=== PATIENT | male | born 1960 | race Hispanic/Latino ===

== ENCOUNTER 2018-04-19 07:25 | Emergency (ER) | payer OTHER ==
[2018-04-19 07:34] VITALS: RESP 19
[2018-04-19] MEDS ORDERED: Sodium Chloride 0.9% 1,000 ML IV STA (07:45)
[2018-04-19] MEDS ORDERED: Iohexol 240 (50 ml) PO ONE (07:45)
[2018-04-19 07:47] VITALS: O2SAT 98
[2018-04-19] MEDS ORDERED: Iohexol 240 (50 ml) ONE (07:55)
[2018-04-19 08:08] LABS: BASO % 0.3 % (0.0-2.0); EOS # 0.2 K/uL (0.0-0.7); EOS % 1.4 % (0.0-4.0); HEMOGLOBIN 15.5 g/dL (12.0-18.0); LYMPH # 1.4 K/uL (1.0-4.3); LYMPH % 11.6 % (20.0-40.0); MEAN CORPUSCULAR HEMOGLOBIN 32.7 pg (27.0-31.0); MEAN CORPUSCULAR HGB CONC 33.7 g/dL (33.0-37.0); MEAN PLATELET VOLUME 8.2 fl (7.2-11.7); MONO # 0.8 K/uL (0.0-0.8); MONO % 6.6 % (0.0-10.0); NEUT # 9.6 K/uL (1.8-7.0); NEUT % 80.1 % (50.0-75.0); RBC 4.75 Mil/uL (4.40-5.90); RED CELL DISTRIBUTION WIDTH 13.7 % (11.5-14.5); WHITE BLOOD COUNT 11.9 K/uL (4.8-10.8)
--- NOTE | 2018-04-19 08:08 | ED PDOC ---
HPI: Chest Pain Time Seen by Provider: 04/19/18 07:29 Chief Complaint (Nursing): Chest Pain Chief Complaint (Provider): chest pain History Per: Patient History/Exam Limitations: no limitations Additional Complaint(s): Maximo Reilly, a 58 year old male with no significant past medical history, presents to the emergency room with left sided chest pain associated with belly fullness onset yesterday. Patient states he feels like there is a bubble in his belly, and had similar symptoms last week which subsided after a family member gave him Bentyl. Patient denies taking Bentyl prior to arrival, shortness of breath, back pain, numbness, recent travel, dizziness, urinary problems, testicular pain, sick family members or PCP. No further medical complaints. Past Medical History Reviewed: Historical Data, Nursing Documentation, Vital Signs Vital Signs: Last Vital Signs Temp 97.4 F L 04/19/18 07:33 Pulse 65 04/19/18 07:33 Resp 19 04/19/18 07:33 BP 139/82 04/19/18 07:33 Pulse Ox 98 04/19/18 11:48 - Medical History PMH: No Chronic Diseases - Surgical History Surgical History: No Surg Hx - Family History Family History: States: Unknown Family Hx - Living Arrangements Living Arrangements: With Family - Home Medications Home Medications: Ambulatory Orders Medication Instructions Recorded Dicyclomine [Dicyclomine HCl] 10 mg PO DAILY PRN 5 Days cap 04/19/18 - Allergies Allergies/Adverse Reactions: Allergies Allergy/AdvReac Type Severity Reaction Status Date / Time SHELLFISH Allergy RASH Uncoded 04/19/18 08:56 VANESSA Risk Score for UA/NSTEMI - VANESSA Risk Score Age > 64: NO 3 or more CAD Risk Factors: NO Known CAD (Stenosis greater than 50%): NO Aspirin use in past 7 days: NO Severe Angina: NO EKG ST changes greater than 0.5mm: NO Positive Cardiac Marker: NO VANESSA Score: 0 Risk %: 5% Review of Systems ROS Statement: Except As Marked, All Systems Reviewed And Found Negative Cardiovascular: Positive for: Chest Pain (left sided) Respiratory: Negative for: Shortness of Breath Gastrointestinal: Positive for: Abdominal Pain Genitourinary Male: Negative for: Dysuria, Frequency, Incontinence, Other ( tesicular pain) Musculoskeletal: Negative for: Back Pain Neurological: Negative for: Weakness, Numbness Physical Exam - Reviewed Nursing Documentation Reviewed: Yes Vital Signs Reviewed: Yes - Physical Exam Appears: Positive for: Well, Non-toxic, No Acute Distress Head Exam: Positive for: ATRAUMATIC, NORMAL INSPECTION, NORMOCEPHALIC Skin: Positive for: Normal Color, Warm, DRY Eye Exam: Positive for: Normal appearance ENT: Positive for: Normal ENT Inspection Neck: Positive for: Normal Cardiovascular/Chest: Positive for: Regular Rate, Rhythm Respiratory: Positive for: Normal Breath Sounds. Negative for: Respiratory Distress Gastrointestinal/Abdominal: Positive for: Soft, Tenderness (mild, diffuse). Negative for: Distended, Guarding, Rebound Back: Positive for: Normal Inspection. Negative for: L CVA Tenderness, R CVA Tenderness Extremity: Positive for: Normal ROM. Negative for: Tenderness, Pedal Edema Neurologic/Psych: Positive for: Alert, Oriented - Laboratory Results Result Diagrams: 04/19/18 07:50 04/19/18 07:50 Interpretation Of Abn Labs: 11.9 wbc - ECG ECG: Positive for: Interpreted By Me, Viewed By Me ECG Rhythm: Positive for: Normal QRS, Normal ST Segment, Sinus Rhythm O2 Sat by Pulse Oximetry: 98 (RA) Pulse Ox Interpretation: Normal - Radiology X-Ray: Interpreted by Me, Viewed By Me X-Ray Interpretation: No Acute Disease - CT Scan/US ct Other Rad Studies (CT/US): Read By Radiologist Other Rad Interpretation: cholecystitis - Progress ED Course And Treament: 1147: Stable. AAOx3. Surgery paged. 1419: Stable. Surgery saw and evaluated pt. They discussed with Dr. Pandya. US reviewed. Not cholecystitis per surgery. Pt. symptoms resolved with bentyl. Currently no pain, weakness, no chest pain, dyspnea, nausea, vomit , diarrhea. Fu with surgeon and pcp. Pt. does not wish to stay overnight for further evaluation/obs. Wants to go home and will return if symptoms return. Aware of possible or decreased functioning from possible cause of the pain. Unclear source. Pt. is aaox3. Has capacity to make decisions. Family at bedside and agree with pt. decision. Per family, pt. has had endoscopy in the past and has had ulcers in the past. Takes ppi meds. Medical Decision Making Medical Decision Making: Time: 7:29 Initial Impression: Initial Plan: --CT abd/pelvis --EKG --CMP --Lipase --Troponin --Urine dip --CBC w/differential --CXR portable --Bentyl 10 mg PO --Sodium chloride 1000 ml --Omnipaque 50 ml PO Time: 8:42 Chest x ray FINDINGS: LUNGS: No active pulmonary disease. PLEURA: No significant pleural effusion identified, no pneumothorax apparent. CARDIOVASCULAR: Normal. OSSEOUS STRUCTURES: No significant abnormalities. VISUALIZED UPPER ABDOMEN: Normal. OTHER FINDINGS: None. IMPRESSION: No active disease. Time: 11:18 Abd/Pelvis CT FINDINGS: LOWER THORAX: Unremarkable. LIVER: Unremarkable. No gross lesion or ductal dilatation. Multiple liver cysts. GALLBLADDER AND BILE DUCTS: Distended gallbladder with gallbladder in the neck, pericholecystic fluid and suggestion of wall thickening; correlate clinically for cholecystitis. PANCREAS: Unremarkable. No gross lesion or ductal dilatation. SPLEEN: Unremarkable. ADRENALS: Unremarkable. No mass. KIDNEYS AND URETERS: Unremarkable. No hydronephrosis. No solid mass. VASCULATURE: Unremarkable. No aortic aneurysm. BOWEL: Colonic diverticulosis. No obstruction. No gross mural thickening. APPENDIX: Normal appendix. PERITONEUM: Unremarkable. No free fluid. No free air. LYMPH NODES: Unremarkable. No enlarged lymph nodes. BLADDER: Unremarkable. REPRODUCTIVE: Prostate enlargement. BONES: No acute fracture. OTHER FINDINGS: None. IMPRESSION: Distended gallbladder with gallbladder in the neck, pericholecystic fluid and suggestion of wall thickening; correlate clinically for cholecystitis. Scribe Attestation: Documented by Twila Hall, acting as a scribe for Po Haile MD. Provider Scribe Attestation: All medical record entries made by the Scribe were at my direction and personally dictated by me. I have reviewed the chart and agree that the record accurately reflects my personal performance of the history, physical exam, medical decision making, and the department course for this patient. I have also personally directed, reviewed, and agree with the discharge instructions and disposition. Disposition - Clinical Impression Clinical Impression: Abdominal pain - Patient ED Disposition Is Patient to be Admitted: No Counseled Patient/Family Regarding: Studies Performed, Diagnosis, Need For Followup, Rx Given - Disposition Referrals: Rafael Pandya MD [Staff Provider] - 04/21/18 [facility] [Outside] - 04/20/18 Disposition: Routine/Home Disposition Time: 14:19 Condition: STABLE Additional Instructions: Return if not better right away. We are not clear what is causing your abdominal pain. You have chosen not to stay overnight for further evaluation/ treatment. Prescriptions: Dicyclomine [Dicyclomine HCl] 10 mg PO DAILY PRN 5 Days cap PRN Reason: Gi Distress Instructions: Stomach Ache and Stomach Upset Forms: [facility] (B[place]udian)
[2018-04-19 08:14] LABS: ALB/GLOB RATIO 1.3 (1.0-2.1); ALT/SGPT 54 U/L (21-72); AST/SGOT 66 U/L (17-59); BLOOD UREA NITROGEN 18 mg/dl (9-20); CALCIUM 9.6 mg/dL (8.4-10.2); GFR NON-AFRICAN AMERICAN > 60; LIPASE 31 U/L (23-300)
--- NOTE | 2018-04-19 08:44 | RAD ---
Date of service: 04/19/2018 HISTORY: pain COMPARISON: No prior. FINDINGS: LUNGS: No active pulmonary disease. PLEURA: No significant pleural effusion identified, no pneumothorax apparent. CARDIOVASCULAR: Normal. OSSEOUS STRUCTURES: No significant abnormalities. VISUALIZED UPPER ABDOMEN: Normal. OTHER FINDINGS: None. IMPRESSION: No active disease.
[2018-04-19] MEDS ORDERED: Sodium Chloride 0.9% 50 ML IV ONE (10:44)
[2018-04-19] MEDS ORDERED: Iodixanol 320 MG/ML 100 ML BOTTLE IV ONE (10:44)
--- NOTE | 2018-04-19 11:20 | CT ---
Date of service: 04/19/2018 PROCEDURE: CT Abdomen and Pelvis with contrast HISTORY: abd pain COMPARISON: None. TECHNIQUE: Contrast dose: Radiation dose: Total exam DLP = mGy-cm. This CT exam was performed using one or more of the following dose reduction techniques: Automated exposure control, adjustment of the mA and/or kV according to patient size, and/or use of iterative reconstruction technique. FINDINGS: LOWER THORAX: Unremarkable. LIVER: Unremarkable. No gross lesion or ductal dilatation. Multiple liver cysts. GALLBLADDER AND BILE DUCTS: Distended gallbladder with gallbladder in the neck, pericholecystic fluid and suggestion of wall thickening; correlate clinically for cholecystitis. PANCREAS: Unremarkable. No gross lesion or ductal dilatation. SPLEEN: Unremarkable. ADRENALS: Unremarkable. No mass. KIDNEYS AND URETERS: Unremarkable. No hydronephrosis. No solid mass. VASCULATURE: Unremarkable. No aortic aneurysm. BOWEL: Colonic diverticulosis. No obstruction. No gross mural thickening. APPENDIX: Normal appendix. PERITONEUM: Unremarkable. No free fluid. No free air. LYMPH NODES: Unremarkable. No enlarged lymph nodes. BLADDER: Unremarkable. REPRODUCTIVE: Prostate enlargement. BONES: No acute fracture. OTHER FINDINGS: None. IMPRESSION: Distended gallbladder with gallbladder in the neck, pericholecystic fluid and suggestion of wall thickening; correlate clinically for cholecystitis.
[2018-04-19] MEDS ORDERED: Piperacillin/Tazobact 3.375 GM in Sodium Chloride 0.9% 100 ML IV STA (11:42)
[2018-04-19] MEDS ORDERED: Piperacillin/Tazobact 3.375 gm Inj IVPB ONE (11:45)
--- NOTE | 2018-04-19 11:59 | CARD ---
APPROVED REPORT Date of service: 04/19/2018 EKG Measurement Heart [id number] <Conclusion> Normal sinus rhythm Normal ECG
[2018-04-19 12:07] LABS: VENOUS BLOOD GAS BASE EXCESS 1.5 mmol/L (0.0-2.0); VENOUS BLOOD GAS PCO2 46 mmHg (40-60); VENOUS BLOOD GAS PO2 23 mm/Hg (30-55); VENOUS BLOOD PH 7.38 (7.32-7.43)
--- NOTE | 2018-04-19 13:50 | US ---
Date of service: 04/19/2018 HISTORY: abd pain, gall stones COMPARISON: None. TECHNIQUE: Sonographic evaluation of the abdomen. FINDINGS: LIVER: Measures cm. Normal echogenicity of the liver parenchyma. No mass. No intrahepatic bile duct dilatation. GALLBLADDER: Significant gall bladder distention. No gross calculus.. COMMON BILE DUCT: Measures mm. No stones. No dilatation. PANCREAS: Unremarkable as visualized. No mass. No ductal dilatation. RIGHT KIDNEY: Measures cm. Normal echogenicity. No calculus, mass, or hydronephrosis. LEFT KIDNEY: Measures cm. Normal echogenicity. No calculus, mass, or hydronephrosis. SPLEEN: Normal in size and contour. No mass. AORTA: No aneurysmal dilatation. IVC: Unremarkable. OTHER FINDINGS: None. IMPRESSION: Significant gall bladder distention. No stone..
--- NOTE | 2018-04-19 14:07 | CP.PCM.CON ---
History of Present Illness - History of Present Illness History of Present Illness: Surgery Consult: Dr. Pandya Pt is a 58M with PMHx significant for GERD who presents to [facility] with complaints of abdominal pain x 1 week. Pt states he first had the pain about a week ago after eating a hamburger and soup. He states the pain was diffuse and resolved after he took some Bentyl. However, the pain returned last night after dinner and when it did not improve he came to the ER. He denies any associated nausea, vomiting, fevers or chills. In the ER, pt had a CT abdomen/pelvis which showed GB with pericholecystic fluid and wall thickening. An US of the abdomen was obtained and showed no stones, wall thickening or fluid. Pt also received Bentyl,Toradol and Zosyn in the ER. Surgery called to evaluate. Currently, pt is resting comfortably in bed. States his pain is a lot better and denies any other complaints. Pt states he did have an endoscopy several years ago which showed some gastric ulcers. Denies having a colonoscopy. PMHx: GERD PSHx: Left arm surgery SocialHx: daily cigar smoker x 25yrs, denies cigarette somking/drugs. Social EtOH ALL: shellfish Review of Systems - Review of Systems All systems: reviewed and no additional remarkable complaints except (as per HPI ) Past Patient History - Past Social History Alcohol: Social Drugs: Denies - GASTROINTESTINAL Hx Gastrointestinal Disorders: Yes Hx Gastroesophageal Reflux: Yes - PSYCHIATRIC Hx Substance Use: No - SURGICAL HISTORY Hx Surgeries: Yes - ANESTHESIA Hx Anesthesia: Yes Hx Anesthesia Reactions: No Meds Allergies/Adverse Reactions: Allergies Allergy/AdvReac Type Severity Reaction Status Date / Time SHELLFISH Allergy RASH Uncoded 04/19/18 08:56 Physical Exam - Constitutional Appears: Well, No Acute Distress - Head Exam Head Exam: ATRAUMATIC, NORMOCEPHALIC - Eye Exam Eye Exam: Normal appearance - ENT Exam ENT Exam: Mucous Membranes Moist - Respiratory Exam Respiratory Exam: NORMAL BREATHING PATTERN - Cardiovascular Exam Cardiovascular Exam: RRR - GI/Abdominal Exam GI & Abdominal Exam: Soft. absent: Distended, Guarding, Rebound, Tenderness - Extremities Exam Extremities exam: Negative for: calf tenderness - Neurological Exam Neurological exam: Alert, Oriented x3 - Skin Skin Exam: Dry, Warm Results - Vital Signs Recent Vital Signs: Last Vital Signs Temp 97.4 F L 04/19/18 07:33 Pulse 65 04/19/18 07:33 Resp 19 04/19/18 07:33 BP 139/82 04/19/18 07:33 Pulse Ox 98 04/19/18 11:48 - Labs Result Diagrams: 04/19/18 07:50 04/19/18 07:50 Labs: Laboratory Results - last 24 hr 04/19/18 04/19/18 04/19/18 07:50 07:50 12:02 WBC 11.9 H RBC 4.75 Hgb 15.5 Hct 46.1 MCV 97.0 H MCH 32.7 H MCHC 33.7 RDW 13.7 Plt Count 170 MPV 8.2 Neut % (Auto) 80.1 H Lymph % (Auto) 11.6 L Cotton % (Auto) 6.6 Eos % (Auto) 1.4 Baso % (Auto) 0.3 Neut # (Auto) 9.6 H Lymph # (Auto) 1.4 Cotton # (Auto) 0.8 Eos # (Auto) 0.2 Baso # (Auto) 0.0 pO2 23 L VBG pH 7.38 VBG pCO2 46 VBG HCO3 24.5 VBG Total CO2 28.6 H VBG O2 Sat (Calc) 43.1 VBG Base Excess 1.5 VBG Potassium 4.4 Glucose 116 H Lactate 0.9 FiO2 21.0 Sodium 139 135.0 Potassium 4.5 Chloride 106 105.0 Carbon Dioxide 22 Anion Gap 16 BUN 18 Creatinine 0.9 Est GFR ( Amer) > 60 Est GFR (Non-Af Amer) > 60 Random Glucose 108 Calcium 9.6 Total Bilirubin 0.6 AST 66 H ALT 54 Alkaline Phosphatase 72 Troponin I < 0.0120 Total Protein 7.0 Albumin 4.0 Globulin 3.0 Albumin/Globulin Ratio 1.3 Lipase 31 Venous Blood Potassium 4.4 - Imaging and Cardiology CT scan - abdomen Status: Image reviewed by me, Report reviewed by me US - abdomen Status: Image reviewed by me, Report reviewed by me Assessment & Plan - Assessment and Plan (Free Text) Assessment: 58M with abdominal pain; r/o cholecystitis Plan: - pt states that he would like to leave and follow up as outpt for further follow up - in light of negative US findings, pain is likely related to GERD/PUD - recommend outpt GI f/u for endoscopy and screening colonoscopy - if pain returns or symptoms worsen return to the ER - d/w Dr. Mumtaz Ordonez
[2018-04-19 15:25] VITALS: BP 137/80; PULSE 79; TEMP 97.6
[2018-04-19] MEDS ORDERED: Morphine 4 MG/ML VIAL ONE (20:52)
[2018-04-20] MEDS ORDERED: Piperacillin/Tazobact 3.375 gm Inj IVPB ONE (00:07)
[2018-04-20] MEDS ORDERED: Morphine 4 MG/ML VIAL ONE (00:13)
== END 2018-04-19 15:25 | disposition home or self-care (01) ==
LOC: H.ER 07:25
DX: R10.9 Unspecified abdominal pain (principal); K21.9 Gastro-esophageal reflux disease without esophagitis; R07.89 Other chest pain
CPT/HCPCS: 71045; 74177; 76705; 80053; 82803; 83690; 84484; 85025; 87040; 93005; 96361; 96365; 96375; 99285; J1885; J2543; J7030; Q9966; Q9967

== ENCOUNTER 2018-04-19 19:01 | Inpatient (IN) | payer OTHER ==
[2018-04-19] MEDS ORDERED: Morphine 4 MG/ML VIAL IVP ONE (20:42)
[2018-04-19] MEDS ORDERED: Sodium Chloride 0.9% 1,000 ML IV STA (20:42)
[2018-04-19 21:12] LABS: BASO % 0.3 % (0.0-2.0); EOS % 0.3 % (0.0-4.0); HEMOGLOBIN 14.6 g/dL (12.0-18.0); LYMPH % 10.3 % (20.0-40.0); MEAN CELL VOLUME 95.6 fl (80.0-94.0); MEAN CORPUSCULAR HEMOGLOBIN 32.9 pg (27.0-31.0); MEAN CORPUSCULAR HGB CONC 34.4 g/dL (33.0-37.0); MEAN PLATELET VOLUME 8.4 fl (7.2-11.7); MONO # 0.8 K/uL (0.0-0.8); MONO % 8.1 % (0.0-10.0); NEUT # 7.6 K/uL (1.8-7.0); RBC 4.45 Mil/uL (4.40-5.90); RED CELL DISTRIBUTION WIDTH 13.6 % (11.5-14.5); WHITE BLOOD COUNT 9.4 K/uL (4.8-10.8)
[2018-04-19 21:43] LABS: ALB/GLOB RATIO 1.3 (1.0-2.1); ALBUMIN 3.7 g/dL (3.5-5.0); ALT/SGPT 349 U/L (21-72); AST/SGOT 313 U/L (17-59); BLOOD UREA NITROGEN 13 mg/dl (9-20); CALCIUM 9.2 mg/dL (8.4-10.2); GFR NON-AFRICAN AMERICAN > 60; LIPASE 26 U/L (23-300)
--- NOTE | 2018-04-19 21:59 | CP.PCM.HP ---
History of Present Illness - History of Present Illness History of Present Illness: Surgery: Dr. Pandya Pt is a 58M with PMHx significant for GERD who presents to [facility] with complaints of abdominal pain x 1 week. Pt states he first had the pain about a week ago after eating a hamburger and soup. He states the pain was diffuse and resolved after he took some Bentyl. However, the pain returned last night after dinner and when it did not improve he came to the ER. He denies any associated nausea, vomiting, fevers or chills. In the ER, pt had a CT abdomen/pelvis which showed GB with pericholecystic fluid and wall thickening. An US of the abdomen was obtained and showed no stones, wall thickening or fluid. Pt also received Bentyl,Toradol and Zosyn in the ER. Surgery called to evaluate. Pt felt better and wanted to go home so he was discharged with outpt f/u. However, pt has now returned to the ER with worsening abdominal pain. He states after the medication wore off the pain returned. He denies any episodes of vomiting, fevers/chills, chest pain or SOB. Pt states he had an EGD few years ago which showed some gastric ulcers. Denies having a colonoscopy. PMHx: GERD PSHx: Left arm surgery SocialHx: daily cigar smoker x 25yrs, denies cigarette somking/drugs. Social EtOH ALL: shellfish Present on Admission - Present on Admission Any Indicators Present on Admission: No Review of Systems - Review of Systems All systems: reviewed and no additional remarkable complaints except (as per HPI) Past Patient History - Past Social History Alcohol: Social Drugs: Denies - GASTROINTESTINAL Hx Gastrointestinal Disorders: Yes Hx Gastroesophageal Reflux: Yes - PSYCHIATRIC Hx Substance Use: No - SURGICAL HISTORY Hx Surgeries: Yes Other/Comment: Left arm surgery - ANESTHESIA Hx Anesthesia: Yes Hx Anesthesia Reactions: No Meds Allergies/Adverse Reactions: Allergies Allergy/AdvReac Type Severity Reaction Status Date / Time SHELLFISH Allergy RASH Uncoded 04/19/18 08:56 Physical Exam - Constitutional Appears: Well, No Acute Distress - Head Exam Head Exam: ATRAUMATIC, NORMOCEPHALIC - Eye Exam Eye Exam: Normal appearance - ENT Exam ENT Exam: Mucous Membranes Moist - Respiratory Exam Respiratory Exam: NORMAL BREATHING PATTERN - Cardiovascular Exam Cardiovascular Exam: RRR - GI/Abdominal Exam GI & Abdominal Exam: Soft, Tenderness (epigastric stretching across the mid abdomen to the Right and Left ). absent: Distended, Guarding, Rebound - Back Exam Back exam: absent: CVA tenderness (L) - Neurological Exam Neurological exam: Alert, Oriented x3 - Skin Skin Exam: Dry, Warm Results - Vital Signs Recent Vital Signs: Last Vital Signs Temp 98.4 F 04/19/18 19:25 Pulse 55 L 04/19/18 20:12 Resp 23 04/19/18 20:12 BP 147/76 04/19/18 20:12 Pulse Ox 98 04/19/18 20:12 - Labs Result Diagrams: 04/19/18 21:00 04/19/18 21:00 Labs: Laboratory Results - last 24 hr 04/19/18 04/19/18 21:00 21:00 WBC 9.4 RBC 4.45 Hgb 14.6 Hct 42.5 MCV 95.6 H MCH 32.9 H MCHC 34.4 RDW 13.6 Plt Count 150 MPV 8.4 Neut % (Auto) 81.0 H Lymph % (Auto) 10.3 L [place] % (Auto) 8.1 Eos % (Auto) 0.3 Baso % (Auto) 0.3 Neut # (Auto) 7.6 H Lymph # (Auto) 1.0 [place] # (Auto) 0.8 Eos # (Auto) 0.0 Baso # (Auto) 0.0 Sodium 136 Potassium 3.9 Chloride 108 H Carbon Dioxide 22 Anion Gap 10 BUN 13 Creatinine 0.8 Est GFR ( Amer) > 60 Est GFR (Non-Af Amer) > 60 Random Glucose 105 Calcium 9.2 Total Bilirubin 0.7 AST 313 H D ALT 349 H D Alkaline Phosphatase 111 Total Protein 6.6 Albumin 3.7 Globulin 2.9 Albumin/Globulin Ratio 1.3 Lipase 26 - Imaging and Cardiology CT scan - abdomen Status: Image reviewed by me, Report reviewed by me US - abdomen Status: Image reviewed by me, Report reviewed by me Assessment & Plan - Assessment and Plan (Free Text) Assessment: 58M with abdominal pain secondary to biliary colic r/o cholecystitis Plan: - NPO, IVF, IV ABX - plan for OR in AM for lap monique - d/w Dr. Mumtaz Ordonez
[2018-04-19] MEDS ORDERED: Lactated Ringer's 1,000 ML IV SCH (22:00)
--- NOTE | 2018-04-19 22:06 | ED PDOC ---
HPI: Abdomen Time Seen by Provider: 04/19/18 20:21 Chief Complaint (Nursing): Abdominal Pain Chief Complaint (Provider): Abdominal Pain History Per: Patient History/Exam Limitations: no limitations Onset/Duration Of Symptoms: Days (x3) Current Symptoms Are (Timing): Still Present Location Of Pain/Discomfort: Diffuse Quality Of Discomfort: "Pain" Associated Symptoms: Nausea. denies: Vomiting, Diarrhea Additional Complaint(s): 58 year old male with no significant past medical history presents to the ED with diffuse adominal pain onset x3 days. Patient was seen here yesterday, labs , CT, US were done, patient was seen by surgical services assistant. He possibly has cholecystitis and was offered admission but patient declined. Earlier today, his abdominal pain began getting worse, prompting ED visit. Patient has nausea but denies fever and diarrhea. PMD: none Past Medical History Reviewed: Historical Data, Nursing Documentation, Vital Signs Vital Signs: Last Vital Signs Temp 97.9 F 04/20/18 02:28 Pulse 55 L 04/20/18 02:28 Resp 20 04/20/18 02:28 BP 128/70 04/20/18 02:28 Pulse Ox 98 04/20/18 02:45 - Medical History PMH: No Chronic Diseases - Surgical History Surgical History: No Surg Hx - Family History Family History: States: Unknown Family Hx - Social History Alcohol: Social Drugs: Denies - Home Medications Home Medications: Ambulatory Orders Medication Instructions Recorded Dicyclomine [Dicyclomine HCl] 10 mg PO DAILY PRN 5 Days cap 04/19/18 - Allergies Allergies/Adverse Reactions: Allergies Allergy/AdvReac Type Severity Reaction Status Date / Time SHELLFISH Allergy RASH Uncoded 04/19/18 08:56 Review of Systems ROS Statement: Except As Marked, All Systems Reviewed And Found Negative Gastrointestinal: Positive for: Nausea, Abdominal Pain. Negative for: Vomiting , Diarrhea Physical Exam - Reviewed Nursing Documentation Reviewed: Yes Vital Signs Reviewed: Yes - Physical Exam Appears: Positive for: Non-toxic, No Acute Distress Head Exam: Positive for: ATRAUMATIC, NORMOCEPHALIC Skin: Positive for: Normal Color, Warm, Dry Eye Exam: Positive for: EOMI, Normal appearance, PERRL Cardiovascular/Chest: Positive for: Regular Rate, Rhythm. Negative for: Murmur Respiratory: Negative for: Normal Breath Sounds, Respiratory Distress Gastrointestinal/Abdominal: Positive for: Soft, Tenderness (diffuse tenderness, mostly upper). Negative for: Mass, Guarding, Rebound Back: Positive for: Normal Inspection Extremity: Positive for: Normal ROM (upper and lower). Negative for: Pedal Edema, Deformity Neurologic/Psych: Positive for: Alert, Oriented (x3) - Laboratory Results Result Diagrams: 04/19/18 21:00 04/19/18 21:00 - ECG O2 Sat by Pulse Oximetry: 98 (RA) Pulse Ox Interpretation: Normal Medical Decision Making Medical Decision Making: Time: 2041 Initial Impression: Abdominal pain, possible acute cholecystitis Initial Plan: --CMP --Lipase --CBC with differentials --Morphine 4 mg IVP --NS --Zofran 4 mg IVP --Blood culture Time: 2042 --Spoke to surgical services assistant, who came and saw patient. Patient will be admitted under Dr. Pandya. Patient was seen earlier today in this ED and had imaging done. Results listed below: 11:18 CT Abd Pelvis FINDINGS: LOWER THORAX: Unremarkable. LIVER: Unremarkable. No gross lesion or ductal dilatation. Multiple liver cysts. GALLBLADDER AND BILE DUCTS: Distended gallbladder with gallbladder in the neck, pericholecystic fluid and suggestion of wall thickening; correlate clinically for cholecystitis. PANCREAS: Unremarkable. No gross lesion or ductal dilatation. SPLEEN: Unremarkable. ADRENALS: Unremarkable. No mass. KIDNEYS AND URETERS: Unremarkable. No hydronephrosis. No solid mass. VASCULATURE: Unremarkable. No aortic aneurysm. BOWEL: Colonic diverticulosis. No obstruction. No gross mural thickening. APPENDIX: Normal appendix. PERITONEUM: Unremarkable. No free fluid. No free air. LYMPH NODES: Unremarkable. No enlarged lymph nodes. BLADDER: Unremarkable. REPRODUCTIVE: Prostate enlargement. BONES: No acute fracture. OTHER FINDINGS: None. IMPRESSION: Distended gallbladder with gallbladder in the neck, pericholecystic fluid and suggestion of wall thickening; correlate clinically for cholecystitis. 13:49 Abdomen US FINDINGS: LIVER: Measures cm. Normal echogenicity of the liver parenchyma. No mass. No intrahepatic bile duct dilatation. GALLBLADDER: Significant gall bladder distention. No gross calculus.. COMMON BILE DUCT: Measures mm. No stones. No dilatation. PANCREAS: Unremarkable as visualized. No mass. No ductal dilatation. RIGHT KIDNEY: Measures cm. Normal echogenicity. No calculus, mass, or hydronephrosis. LEFT KIDNEY: Measures cm. Normal echogenicity. No calculus, mass, or hydronephrosis. SPLEEN: Normal in size and contour. No mass. AORTA: No aneurysmal dilatation. IVC: Unremarkable. OTHER FINDINGS: None. IMPRESSION: Significant gall bladder distention. No stone.. Scribe Attestation: Documented by Esha Montiel, acting as a scribe for Nereida Resendiz MD Provider Scribe Attestation: All medical record entries made by the Scribe were at my direction and personally dictated by me. I have reviewed the chart and agree that the record accurately reflects my personal performance of the history, physical exam, medical decision making, and the department course for this patient. I have also personally directed, reviewed, and agree with the discharge instructions and disposition. Disposition - Clinical Impression Clinical Impression: Acute cholecystitis - Patient ED Disposition Is Patient to be Admitted: Yes Discussed With : Rafael Pandya Doctor Will See Patient In The: ED Counseled Patient/Family Regarding: Studies Performed, Diagnosis - Disposition Disposition Time: 20:43 Condition: FAIR - Pt Status Changed To: Hospital Disposition Of: Inpatient - Admit Certification Admit to Inpatient:: After my assessment, the patient will require hospitalization for at least two midnights. This is because of the severity of symptoms shown, intensity of services needed, and/or the medical risk in this patient being treated as an outpatient. - POA Present On Arrival: None
[2018-04-20] MEDS: Piperacillin/Tazobact 3.375 GM in Sodium Chloride 0.9% 100 ML IVPB SCH ×5 (00:25→22:28)
[2018-04-20 06:18] LABS: BASO % 0.1 % (0.0-2.0); EOS % 0.3 % (0.0-4.0); HEMOGLOBIN 13.9 g/dL (12.0-18.0); LYMPH # 0.8 K/uL (1.0-4.3); LYMPH % 7.9 % (20.0-40.0); MEAN CELL VOLUME 95.5 fl (80.0-94.0); MEAN CORPUSCULAR HEMOGLOBIN 32.7 pg (27.0-31.0); MEAN CORPUSCULAR HGB CONC 34.3 g/dL (33.0-37.0); MEAN PLATELET VOLUME 8.6 fl (7.2-11.7); MONO # 0.7 K/uL (0.0-0.8); MONO % 7.6 % (0.0-10.0); NEUT # 8.3 K/uL (1.8-7.0); NEUT % 84.1 % (50.0-75.0); PLATELET COUNT 131 K/uL (130-400); RBC 4.24 Mil/uL (4.40-5.90); RED CELL DISTRIBUTION WIDTH 13.5 % (11.5-14.5); WHITE BLOOD COUNT 9.8 K/uL (4.8-10.8)
[2018-04-20 06:28] LABS: ALB/GLOB RATIO 1.2 (1.0-2.1); ALBUMIN 3.2 g/dL (3.5-5.0); ALT/SGPT 390 U/L (21-72); AST/SGOT 391 U/L (17-59); BLOOD UREA NITROGEN 12 mg/dl (9-20); CALCIUM 8.5 mg/dL (8.4-10.2); GFR NON-AFRICAN AMERICAN > 60
[2018-04-20 09:04] LABS: AMYLASE 37 U/L (30-110); LIPASE 34 U/L (23-300)
[2018-04-20] MEDS ORDERED: Gadodiamide 287 MG/ML VIAL (15ML) IV ONE (09:05)
[2018-04-20] MEDS ORDERED: Sodium Chloride 0.9% 50 ML IV ONE (09:05)
[2018-04-20 09:59] LABS: BANDS 1 % (0-2); EOSINOPHIL 1 % (0-7); LYMPHOCYTE 11 % (20-50); MONOCYTE 9 % (0-10); NEUTROPHIL 78 % (42-75); PLATELET ESTIMATE NORMAL (NORMAL); TOTAL CELLS COUNTED 100
--- NOTE | 2018-04-20 14:23 | MRI ---
ate of service: 04/20/2018 PROCEDURE: Magnetic Resonance Cholangiopancreatography HISTORY: Elevated LFTs, evaluate for choledocholithiasis COMPARISON: CT scan of the abdomen pelvis dated 04/19/2018 TECHNIQUE: Multiplanar, multisequence MR images of the abdomen were obtained, including heavily T2 weighted MRCP images of the biliary system. Rotating maximum intensity projection images of the biliary system were generated. FINDINGS: MRCP: The common bile duct is of a normal caliber. No evidence of choledocholithiasis. No intrahepatic biliary ductal dilatation. Low insertion of the cystic duct. LIVER: 1.8 cm right hepatic dome cyst. 2.7 cm segment 3 cyst. 1.0 cm segment 4B cyst. Trace perihepatic ascites. GALLBLADDER: Distended gallbladder with marked wall thickening/edema and pericholecystic fluid. Questionable calculus in the cystic duct. SPLEEN: Unremarkable. PANCREAS: Unremarkable. ADRENALS: Unremarkable. KIDNEYS: Unremarkable. Circumaortic left renal vein. AORTA: No aneurysm. ASCITES: None. OTHER FINDINGS: None. IMPRESSION: Distended gallbladder with marked wall thickening/edema and pericholecystic fluid with questionable calculus in the cystic duct compatible with acute cholecystitis. Low insertion of the cystic duct. Normal caliber CBD without evidence of choledocholithiasis.
[2018-04-20] MEDS ORDERED: Lidocaine 1% w Epi 1:100,000 Inj ONE (15:58)
[2018-04-20] MEDS ORDERED: Midazolam 2 MG/2 ML VIAL ONE (16:25)
[2018-04-20] MEDS ORDERED: Propofol 10 mg/ml Inj (20 ML) ONE ×2 (16:25→19:16)
[2018-04-20] MEDS ORDERED: Succinylcholine 200 mg/10 ml Inj IV ONE (16:26)
[2018-04-20] MEDS ORDERED: Rocuronium 10 mg/ml (5 ml) ONE (16:26)
[2018-04-20] MEDS ORDERED: Lidocaine 4% (Laryng-O-Jet) Kit MM ONE (16:26)
[2018-04-20] MEDS ORDERED: Lactated Ringer's 1,000 ML IV ONE (17:20)
[2018-04-20] MEDS ORDERED: Dexamethasone 4 mg/1 ml ONE (17:40)
[2018-04-20] MEDS ORDERED: Bupivacaine 0.25% Inj(30mL) IJ ONE ×3 (17:45→19:40)
[2018-04-20] MEDS ORDERED: Neostigmine 1:1000 (1 mg/ml) Inj ONE (18:04)
[2018-04-20] MEDS ORDERED: HYDROmorphone 0.5 mg/0.5 ml ISec IVP PRN (20:01)
--- NOTE | 2018-04-20 20:03 | PCM.SURG1 ---
Surgeon's Initial Post Op Note - Surgeon's Notes Surgeon: Dr. Pandya Die Developer: Alec PGY2 Type of Anesthesia: General Endo, Block Regional (TAP), Local Anesthesia Administered By: Dr. Yoandy Morse Pre-Operative Diagnosis: Acute cholecystitis Operative Findings: Acute cholecystitis, fatty liver (see operative report) Post-Operative Diagnosis: Acute cholecystitis Operation Performed: Laparoscopic Cholecystectomy Specimen/Specimens Removed: Gallbladder, liver biopsy Estimated Blood Loss: EBL {In ML}: 35 Blood Products Given: N/A Drains Used: Jr Post-Op Condition: Good Date of Surgery/Procedure: 04/20/18 Time of Surgery/Procedure: 20:03
[2018-04-21] MEDS: Piperacillin/Tazobact 3.375 GM in Sodium Chloride 0.9% 100 ML IVPB SCH ×4 (03:24→21:48)
[2018-04-21 06:34] LABS: BASO % 0.1 % (0.0-2.0); LYMPH # 0.3 K/uL (1.0-4.3); LYMPH % 2.6 % (20.0-40.0); MEAN CELL VOLUME 96.3 fl (80.0-94.0); MEAN CORPUSCULAR HEMOGLOBIN 32.9 pg (27.0-31.0); MEAN CORPUSCULAR HGB CONC 34.1 g/dL (33.0-37.0); MEAN PLATELET VOLUME 8.7 fl (7.2-11.7); MONO # 0.8 K/uL (0.0-0.8); MONO % 6.2 % (0.0-10.0); NEUT # 11.4 K/uL (1.8-7.0); NEUT % 91.1 % (50.0-75.0); NRBC % 0.1 % (0.0-0.0); RBC 4.27 Mil/uL (4.40-5.90); RED CELL DISTRIBUTION WIDTH 13.8 % (11.5-14.5); WHITE BLOOD COUNT 12.6 K/uL (4.8-10.8)
[2018-04-21 06:38] LABS: ALB/GLOB RATIO 1.1 (1.0-2.1); ALBUMIN 3.2 g/dL (3.5-5.0); ALT/SGPT 486 U/L (21-72); AST/SGOT 256 U/L (17-59); BLOOD UREA NITROGEN 16 mg/dl (9-20); CALCIUM 8.7 mg/dL (8.4-10.2); GFR NON-AFRICAN AMERICAN > 60
--- NOTE | 2018-04-21 07:29 | CP.PCM.PN ---
Subjective - Date & Time of Evaluation Date of Evaluation: 04/21/18 Time of Evaluation: 06:50 - Subjective Subjective: General Surgery Pt seen and examined, afebrile. Pain controlled with meds, does have some suprapubic pain from his difficulty voiding earlier. Now voiding freely. Ambulating. No other complaints. Objective - Vital Signs/Intake and Output Vital Signs (last 24 hours): Temp Pulse Resp BP Pulse Ox 97.7 F 82 19 112/73 95 04/21/18 04:40 04/21/18 04:40 04/21/18 04:40 04/21/18 04:40 04/21/18 04:40 Intake and Output: 04/21/18 04/21/18 06:59 18:59 Intake Total 100 Balance 100 - Medications Medications: Current Medications Acetaminophen (Tylenol 325mg Tab) 650 mg PO Q6 [facility] Last Admin: 04/20/18 22:00 Dose: Not Given Docusate Sodium (Colace) 100 mg PO BID [facility] Lactated Ringer's (Lactated Ringer's) 1,000 mls @ 140 mls/hr IV .Q7H9M [facility] Stop: 04/22/18 22:01 Last Admin: 04/20/18 00:25 Dose: 140 mls/hr Piperacillin Sod/Tazobactam (Sod 3.375 gm/ Sodium Chloride) 100 mls @ 100 mls/hr IVPB Q6 [facility]; Protocol Last Admin: 04/21/18 03:24 Dose: 100 mls/hr Acetaminophen (Ofirmev) 100 mls @ 400 mls/hr IVPB Q6H [facility]; Protocol Stop: 04/21/18 20:16 Last Admin: 04/21/18 02:35 Dose: 400 mls/hr Morphine Sulfate (Morphine) 4 mg IVP Q4 PRN PRN Reason: Pain, moderate (4-7) Last Admin: 04/20/18 10:27 Dose: 4 mg Nicotine (Nicoderm Cq) 1 patch TD DAILY [facility] Last Admin: 04/20/18 09:34 Dose: 1 patch Ondansetron HCl (Zofran Inj) 4 mg IVP Q4 PRN PRN Reason: Nausea/Vomiting Last Admin: 04/20/18 20:25 Dose: 4 mg Oxycodone/Acetaminophen (Percocet 5/325 Mg Tab) 1 tab PO Q4 PRN PRN Reason: Pain, moderate (4-7) Stop: 04/23/18 20:00 - Labs Labs: 04/21/18 05:30 04/21/18 05:30 - Constitutional Appears: Non-toxic, No Acute Distress - Head Exam Head Exam: ATRAUMATIC, NORMOCEPHALIC - Eye Exam Eye Exam: EOMI, Scleral icterus - Respiratory Exam Respiratory Exam: NORMAL BREATHING PATTERN. absent: Respiratory Distress - Cardiovascular Exam Cardiovascular Exam: RRR, +S1, +S2 - GI/Abdominal Exam GI & Abdominal Exam: Soft, Tenderness (at incisions and suprapubic area). absent: Distended, Firm, Guarding, Rigid, Rebound Additional comments: Drain in place with serosanguinous output. dressings C/D/I - Neurological Exam Neurological Exam: Alert, Awake, Oriented x3 - Skin Skin Exam: Dry, Warm Assessment and Plan - Assessment and Plan (Free Text) Assessment: 58M POD#1 s/p lap cholecystectomy Plan: Elevated bilirubin- will fractionate, if elevated direct bili, then MRCP Monitor drain output. AM labs Analgesia Continue Abx D/W Dr. Mumtaz Rivera PGY4
--- NOTE | 2018-04-21 14:52 | MRI ---
Date of service: 04/21/2018 PROCEDURE: Magnetic Resonance Cholangiopancreatography HISTORY: COMPARISON: MRCP performed 04/20/2018 TECHNIQUE: Multiplanar, multisequence MR images of the abdomen were obtained, including heavily T2 weighted MRCP images of the biliary system. Rotating maximum intensity projection images of the biliary system were generated. FINDINGS: MRCP: The common bile duct is of a normal caliber. No evidence of choledocholithiasis. No intrahepatic biliary ductal dilatation. Low insertion of the remnant cystic duct. LIVER: Multiple hepatic cysts redemonstrated. GALLBLADDER: Interval cholecystectomy with surgical clips in place. Trace fluid in the gallbladder fossa. SPLEEN: Unremarkable. PANCREAS: Unremarkable. ADRENALS: Unremarkable. KIDNEYS: Unremarkable. Circumaortic left renal vein. AORTA: No aneurysm. ASCITES: None. OTHER FINDINGS: None. IMPRESSION: Interval cholecystectomy. Normal caliber CBD without evidence of choledocholithiasis. Low insertion of the remnant cystic duct.
[2018-04-21] MEDS: Lactated Ringer's 1,000 ML IV SCH (17:49)
[2018-04-21] MEDS: Oxycodone/Acetaminophen 5/325 mg Tab PO PRN (20:47)
[2018-04-22] MEDS: Oxycodone/Acetaminophen 5/325 mg Tab PO PRN ×5 (03:39→22:52)
[2018-04-22] MEDS: Piperacillin/Tazobact 3.375 GM in Sodium Chloride 0.9% 100 ML IVPB SCH ×4 (03:39→22:17)
[2018-04-22 06:32] LABS: HEMOGLOBIN 13.2 g/dL (12.0-18.0); MEAN CELL VOLUME 95.9 fl (80.0-94.0); MEAN CORPUSCULAR HEMOGLOBIN 33.2 pg (27.0-31.0); MEAN CORPUSCULAR HGB CONC 34.7 g/dL (33.0-37.0); RBC 3.96 Mil/uL (4.40-5.90); RED CELL DISTRIBUTION WIDTH 13.9 % (11.5-14.5); WHITE BLOOD COUNT 8.5 K/uL (4.8-10.8)
[2018-04-22 07:05] LABS: ALB/GLOB RATIO 1.1 (1.0-2.1); ALT/SGPT 313 U/L (21-72); AST/SGOT 97 U/L (17-59); BLOOD UREA NITROGEN 17 mg/dl (9-20); CALCIUM 8.4 mg/dL (8.4-10.2); GFR NON-AFRICAN AMERICAN > 60
[2018-04-22] MEDS: Lactated Ringer's 1,000 ML IV SCH (07:43)
[2018-04-22] MEDS ORDERED: Potassium Chloride 20 mEq ER Tab PO ONE (09:41)
--- NOTE | 2018-04-22 10:57 | CP.PCM.PN ---
Subjective - Date & Time of Evaluation Date of Evaluation: 04/22/18 Time of Evaluation: 10:54 - Subjective Subjective: General Surgery Note for Dr. Pandya Patient seen and examined at bedside. No acute event overnight. Patient still admits to abdominal pain requiring percocet every 4 hours. Denies fever/chills or nausea/vomiting. Patient is tolerating low fat diet. He is ambulating without difficulty. Patient reports that urinating has been much easier since Flomax (voiding over 1000cc over last 12 hours). Jr drain with 20cc of serrous/radha output. Objective - Vital Signs/Intake and Output Vital Signs (last 24 hours): Temp Pulse Resp BP Pulse Ox 99.4 F 67 20 107/74 95 04/22/18 08:13 04/22/18 08:13 04/22/18 08:13 04/22/18 08:13 04/22/18 08:13 Intake and Output: 04/22/18 04/22/18 06:59 18:59 Output Total 1120 Balance -1120 - Medications Medications: Current Medications Acetaminophen (Tylenol 325mg Tab) 650 mg PO Q6 [facility] Last Admin: 04/22/18 09:14 Dose: 650 mg Docusate Sodium (Colace) 100 mg PO BID [facility] Last Admin: 04/22/18 08:50 Dose: 100 mg Piperacillin Sod/Tazobactam (Sod 3.375 gm/ Sodium Chloride) 100 mls @ 100 mls/hr IVPB Q6 [facility]; Protocol Last Admin: 04/22/18 09:15 Dose: 100 mls/hr Lactated Ringer's (Lactated Ringer's) 1,000 mls @ 75 mls/hr IV .[id number] [facility] Stop: 04/24/18 17:10 Last Admin: 04/22/18 07:43 Dose: Not Given Nicotine (Nicoderm Cq) 1 patch TD DAILY [facility] Last Admin: 04/22/18 08:50 Dose: 1 patch Ondansetron HCl (Zofran Inj) 4 mg IVP Q4 PRN PRN Reason: Nausea/Vomiting Last Admin: 04/22/18 05:16 Dose: 4 mg Oxycodone/Acetaminophen (Percocet 5/325 Mg Tab) 1 tab PO Q4 PRN PRN Reason: Pain, moderate (4-7) Stop: 04/23/18 20:00 Last Admin: 04/22/18 09:14 Dose: 1 tab Tamsulosin HCl (Flomax) 0.4 mg PO DAILY [facility] Last Admin: 04/22/18 08:50 Dose: 0.4 mg - Labs Labs: 04/22/18 05:35 04/22/18 05:35 - Constitutional Appears: No Acute Distress - Eye Exam Eye Exam: Normal appearance. absent: Scleral icterus - ENT Exam ENT Exam: Mucous Membranes Moist - Respiratory Exam Respiratory Exam: NORMAL BREATHING PATTERN - Cardiovascular Exam Cardiovascular Exam: REGULAR RHYTHM - GI/Abdominal Exam GI & Abdominal Exam: Soft, Tenderness. absent: Distended, Firm, Guarding, Rigid, Rebound Additional comments: jr drain in place surgical site clean dry and intact some bruising around periumbilical scar - Extremities Exam Extremities Exam: Normal Capillary Refill - Back Exam Back Exam: absent: CVA tenderness (L), CVA tenderness (R) - Neurological Exam Neurological Exam: Alert, Awake, Normal Gait, Oriented x3 - Psychiatric Exam Psychiatric exam: Anxious - Skin Skin Exam: Dry, Intact, Warm Assessment and Plan - Assessment and Plan (Free Text) Assessment: 58 M s/p laparoscopic cholecystectomy POD#2 for acute cholecystitis Plan: -Low fat diet -Continue IV antibiotics -May discontinue IV fluids -Monitor LFTs; currently downtrending (t. bili 4.3 -> 1.8) -Encourage ambulation/OOB to chair/IS -Continue flomax -Monitor drain output -Discussed with Dr. Mumtaz Michael PGY2
[2018-04-22] MEDS ORDERED: POLYETHYLENE GLYCOL 3350 17 GM/Dose PACKET PO ONE (14:00)
[2018-04-23] MEDS: Oxycodone/Acetaminophen 5/325 mg Tab PO PRN ×4 (05:47→19:29)
[2018-04-23 06:48] LABS: BASO % 0.3 % (0.0-2.0); EOS # 0.2 K/uL (0.0-0.7); EOS % 3.1 % (0.0-4.0); HEMOGLOBIN 13.2 g/dL (12.0-18.0); LYMPH # 0.7 K/uL (1.0-4.3); LYMPH % 11.9 % (20.0-40.0); MEAN CELL VOLUME 96.1 fl (80.0-94.0); MEAN CORPUSCULAR HEMOGLOBIN 33.4 pg (27.0-31.0); MEAN CORPUSCULAR HGB CONC 34.8 g/dL (33.0-37.0); MEAN PLATELET VOLUME 8.3 fl (7.2-11.7); MONO # 0.6 K/uL (0.0-0.8); MONO % 9.6 % (0.0-10.0); NEUT # 4.4 K/uL (1.8-7.0); NEUT % 75.1 % (50.0-75.0); RBC 3.95 Mil/uL (4.40-5.90); RED CELL DISTRIBUTION WIDTH 13.6 % (11.5-14.5); WHITE BLOOD COUNT 5.8 K/uL (4.8-10.8)
[2018-04-23 07:28] LABS: ALBUMIN 3.1 g/dL (3.5-5.0); ALT/SGPT 228 U/L (21-72); AST/SGOT 52 U/L (17-59); BLOOD UREA NITROGEN 12 mg/dl (9-20); CALCIUM 8.6 mg/dL (8.4-10.2); GFR NON-AFRICAN AMERICAN > 60
--- NOTE | 2018-04-23 07:42 | CP.PCM.PN ---
Subjective - Date & Time of Evaluation Date of Evaluation: 04/23/18 Time of Evaluation: 07:56 - Subjective Subjective: General Surgery Note for Dr. Pandya Patient seen and examined at bedside. No acute event overnight. Patient still complaining of abdominal pain despite pain medication. Denies fever/chills or nausea/vomiting. Patient is tolerating low fat diet. He is ambulating and urinating without difficulty. Admits to constipation, last BM was Friday. Jeni drain with 20cc of serrous output. Objective - Vital Signs/Intake and Output Vital Signs (last 24 hours): Temp Pulse Resp BP Pulse Ox 98.9 F 76 20 128/81 94 L 04/22/18 23:55 04/22/18 23:55 04/22/18 23:55 04/22/18 23:55 04/22/18 23:55 Intake and Output: 04/23/18 04/23/18 06:59 18:59 Output Total 20 Balance -20 - Medications Medications: Current Medications Acetaminophen (Tylenol 325mg Tab) [address] [facility] Last Admin: 04/23/18 04:00 Dose: Not Given Docusate Sodium (Colace) [address] [facility] Last Admin: 04/22/18 16:46 Dose: 100 mg Nicotine (Nicoderm Cq) [address] [facility] Last Admin: 04/22/18 08:50 Dose: 1 patch Ondansetron HCl (Zofran Inj) 4 mg IVP Q4 PRN PRN Reason: Nausea/Vomiting Last Admin: 04/22/18 05:16 Dose: 4 mg Oxycodone/Acetaminophen (Percocet 5/325 Mg Tab) 1 tab PO Q4 PRN PRN Reason: Pain, moderate (4-7) Stop: 04/23/18 20:00 Last Admin: 04/23/18 05:47 Dose: 1 tab Tamsulosin HCl (Flomax) 0.[address] [facility] Last Admin: 04/22/18 08:50 Dose: 0.4 mg - Labs Labs: 04/23/18 05:55 04/23/18 05:55 - Additional Findings Additional findings: - Constitutional Appears: No Acute Distress - Eye Exam Eye Exam: Normal appearance. absent: Scleral icterus - ENT Exam ENT Exam: Mucous Membranes Moist - Respiratory Exam Respiratory Exam: NORMAL BREATHING PATTERN - Cardiovascular Exam Cardiovascular Exam: REGULAR RHYTHM - GI/Abdominal Exam GI & Abdominal Exam: Soft, Tenderness. absent: Distended, Firm, Guarding, Rigid, Rebound Additional comments: jeni drain in place surgical site clean dry and intact some bruising around periumbilical scar - Extremities Exam Extremities Exam: Normal Capillary Refill - Back Exam Back Exam: absent: CVA tenderness (L), CVA tenderness (R) - Neurological Exam Neurological Exam: Alert, Awake, Normal Gait, Oriented x3 - Psychiatric Exam Psychiatric exam: Anxious - Skin Skin Exam: Dry, Intact, Warm Assessment and Plan - Assessment and Plan (Free Text) Assessment: 58 M s/p laparoscopic cholecystectomy POD#3 for acute cholecystitis Plan: -Low fat diet -Continue IV antibiotics -May discontinue IV fluids -Monitor LFTs; currently downtrending (t. bili 1.8 -> 1.2) -Encourage ambulation/OOB to chair/IS -Continue flomax -Monitor drain output -Lactulose and Colace for constipation -Discussed with Dr. Mumtaz Michael PGY2
[2018-04-23] MEDS: Piperacillin/Tazobact 3.375 GM in Sodium Chloride 0.9% 100 ML IVPB SCH ×3 (10:21→21:37)
[2018-04-23 15:54] VITALS: RESP 20
[2018-04-23 23:40] VITALS: O2SAT 95
[2018-04-24] MEDS: Piperacillin/Tazobact 3.375 GM in Sodium Chloride 0.9% 100 ML IVPB SCH ×2 (04:27→09:20)
[2018-04-24 08:29] VITALS: BP 128/81; PULSE 77; TEMP 98.5
--- NOTE | 2018-04-24 10:31 | CP.PCM.DIS ---
Provider - Provider Date of Admission: 04/19/18 20:43 Attending physician: Rafael Pandya MD Time Spent in preparation of Discharge (in minutes): 45 Diagnosis - Discharge Diagnosis (1) Acute cholecystitis Status: Acute Hospital Course - Lab Results Lab Results: Micro Results 04/19/18 21:00 Blood Blood Culture - Preliminary NO GROWTH AFTER 4 DAYS Most Recent Lab Values WBC 5.8 K/uL (4.8-10.8) 04/23/18 05:55 RBC 3.95 Mil/uL (4.40-5.90) L 04/23/18 05:55 Hgb 13.2 g/dL (12.0-18.0) 04/23/18 05:55 Hct 38.0 % (35.0-51.0) 04/23/18 05:55 MCV 96.1 fl (80.0-94.0) H 04/23/18 05:55 MCH 33.4 pg (27.0-31.0) H 04/23/18 05:55 MCHC 34.8 g/dL (33.0-37.0) 04/23/18 05:55 RDW 13.6 % (11.5-14.5) 04/23/18 05:55 Plt Count 151 K/uL (130-400) 04/23/18 05:55 MPV 8.3 fl (7.2-11.7) 04/23/18 05:55 Neut % (Auto) 75.1 % (50.0-75.0) H 04/23/18 05:55 Lymph % (Auto) 11.9 % (20.0-40.0) L 04/23/18 05:55 Alfalfa % (Auto) 9.6 % (0.0-10.0) 04/23/18 05:55 Eos % (Auto) 3.1 % (0.0-4.0) 04/23/18 05:55 Baso % (Auto) 0.3 % (0.0-2.0) 04/23/18 05:55 Neut # (Auto) 4.4 K/uL (1.8-7.0) 04/23/18 05:55 Lymph # (Auto) 0.7 K/uL (1.0-4.3) L 04/23/18 05:55 Alfalfa # (Auto) 0.6 K/uL (0.0-0.8) 04/23/18 05:55 Eos # (Auto) 0.2 K/uL (0.0-0.7) 04/23/18 05:55 Baso # (Auto) 0.0 K/uL (0.0-0.2) 04/23/18 05:55 Total Counted Cancelled 04/21/18 05:30 Neutrophils % (Manual) 78 % (42-75) H 04/20/18 05:35 Band Neutrophils % 1 % (0-2) 04/20/18 05:35 Lymphocytes % (Manual) 11 % (20-50) L 04/20/18 05:35 Reactive Lymphs % Cancelled 04/21/18 05:30 Monocytes % (Manual) 9 % (0-10) 04/20/18 05:35 Eosinophils % (Manual) 1 % (0-7) 04/20/18 05:35 Basophils % (Manual) Cancelled 04/21/18 05:30 Metamyelocytes % Cancelled 04/21/18 05:30 Myelocytes % Cancelled 04/21/18 05:30 Promyelocytes % Cancelled 04/21/18 05:30 Blast Cells % Cancelled 04/21/18 05:30 Plasma Cell % (Manual) Cancelled 04/21/18 05:30 Nucleated RBC % Cancelled 04/21/18 05:30 Hypersegmented Polys Cancelled 04/21/18 05:30 Smudge Cells Cancelled 04/21/18 05:30 Toxic Granulation Cancelled 04/21/18 05:30 Dohle Bodies Cancelled 04/21/18 05:30 Katia Rods Cancelled 04/21/18 05:30 Platelet Estimate Normal (NORMAL) 04/20/18 05:35 Plt Clumps, EDTA Cancelled 04/21/18 05:30 Large Platelets Cancelled 04/21/18 05:30 Giant Platelets Cancelled 04/21/18 05:30 RBC Morphology Normal (NORMAL) 04/20/18 05:35 Polychromasia Cancelled 04/21/18 05:30 Hypochromasia (manual) Cancelled 04/21/18 05:30 Poikilocytosis (manual Cancelled 04/21/18 05:30 Basophilic Stippling Cancelled 04/21/18 05:30 Anisocytosis (manual) Cancelled 04/21/18 05:30 Microcytosis (manual) Cancelled 04/21/18 05:30 Macrocytosis (manual) Cancelled 04/21/18 05:30 Spherocytes Cancelled 04/21/18 05:30 Sickle Cells Cancelled 04/21/18 05:30 Target Cells Cancelled 04/21/18 05:30 Tear Drop Cells Cancelled 04/21/18 05:30 Ovalocytes Cancelled 04/21/18 05:30 Stomatocytes Cancelled 04/21/18 05:30 Helmet Cells Cancelled 04/21/18 05:30 [place] Bodies Cancelled 04/21/18 05:30 Lewis Cells Cancelled 04/21/18 05:30 Acanthocytes (Spur) Cancelled 04/21/18 05:30 Rouleaux Cancelled 04/21/18 05:30 Schistocytes Cancelled 04/21/18 05:30 Sodium 138 mmol/l (132-148) 04/23/18 05:55 Potassium 3.6 MMOL/L (3.6-5.0) 04/23/18 05:55 Chloride 105 mmol/L (98-107) 04/23/18 05:55 Carbon Dioxide 26 mmol/L (22-30) 04/23/18 05:55 Anion Gap 11 (10-20) 04/23/18 05:55 BUN 12 mg/dl (9-20) 04/23/18 05:55 Creatinine 0.8 mg/dl (0.8-1.5) 04/23/18 05:55 Est GFR ( Amer) > 60 04/23/18 05:55 Est GFR (Non-Af Amer) > 60 04/23/18 05:55 Random Glucose 125 mg/dL (75-110) H 04/23/18 05:55 Calcium 8.6 mg/dL (8.4-10.2) 04/23/18 05:55 Total Bilirubin 1.2 mg/dl (0.2-1.3) 04/23/18 05:55 Direct Bilirubin 3.4 mg/ml (0.0-0.4) H 04/21/18 07:33 AST 52 U/L (17-59) 04/23/18 05:55 ALT 228 U/L (21-72) H D 04/23/18 05:55 Alkaline Phosphatase 117 U/L (38-126) 04/23/18 05:55 Total Protein 6.1 G/DL (6.3-8.2) L 04/23/18 05:55 Albumin 3.1 g/dL (3.5-5.0) L 04/23/18 05:55 Globulin 3.0 gm/dL (2.2-3.9) 04/23/18 05:55 Albumin/Globulin Ratio 1.0 (1.0-2.1) 04/23/18 05:55 Amylase 37 U/L (30-110) 04/20/18 05:35 Lipase 34 U/L (23-300) 04/20/18 05:35 - Hospital Course Hospital Course: 58M with PMHx significant for GERD who presents to [facility] with complaints of abdominal pain x 1 week. Pt states he first had the pain about a week ago after eating a hamburger and soup. He states the pain was diffuse and resolved after he took some Bentyl. However, the pain returned last night after dinner and when it did not improve he came to the ER. He denies any associated nausea, vomiting, fevers or chills. In the ER, pt had a CT abdomen/pelvis which showed GB with pericholecystic fluid and wall thickening. An US of the abdomen was obtained and showed no stones, wall thickening or fluid. Pt also received Bentyl,Toradol and Zosyn in the ER. Surgery called to evaluate. Pt felt better and wanted to go home so he was discharged with outpt f/u. However, pt returned to the ER with worsening abdominal pain. He states after the medication wore off the pain returned. He denies any episodes of vomiting, fevers/chills, chest pain or SOB. Pt states he had an EGD few years ago which showed some gastric ulcers. Denies having a colonoscopy. He was admitted for acute cholecystitis. He was started on IV abx and made NPO. The next day, patient was taken to the OR for Laparoscopic cholecystectomy. Patient tolerated procedure well without complications. He was started on a diet. Following morning, patient had evelated Total bilirubin. It was decided patient should remain in hospital for pain control and monitor LFTs. Patient also had an issue with voiding so Flomax was started and soon resolved. Over the next 4 days, patient clinically imporved and LFTs normalized. Patient was deemed medically stable for discharge on 04/24. Patient instructed to follow up as outpatient with Dr. Pandya and Urology. He was given 14 days of Flomax until follow up with urology. (This is a summary of the hospital course. Please refer to EMR for more details.) - Date & Time of H&P Date of H&P: 04/19/18 Time of H&P: 21:56 Discharge Exam - Head Exam Head Exam: ATRAUMATIC, NORMOCEPHALIC - Eye Exam Eye Exam: EOMI, Normal appearance Pupil Exam: PERRL - ENT Exam ENT Exam: Mucous Membranes Moist - Respiratory Exam Respiratory Exam: NORMAL BREATHING PATTERN - Cardiovascular Exam Cardiovascular Exam: REGULAR RHYTHM - GI/Abdominal Exam GI & Abdominal Exam: Normal Bowel Sounds, Soft, Tenderness (surgical sites). absent: Distended, Firm, Guarding, Rigid Additional comments: surgical sites clean dry and intact drain removed, site with dressing - Neurological Exam Neurological exam: Alert, Normal Gait, Oriented x3 - Psychiatric Exam Psychiatric exam: Normal Affect, Normal Mood - Skin Skin Exam: Dry, Intact, Normal Color, Warm Discharge Plan - Follow Up Plan Condition: GOOD Disposition: HOME/ ROUTINE Instructions: Isaiah-Chirinos Drain, Cholecystectomy (DC), Docusate, Oxycodone and Acetaminophen Additional Instructions: Follow up with Dr Pandya 1 week Regular diet. Ok to shower tomorrow. Call for fever more than 101, or pain uncontrolled by meds Rx in chart Skin glue will fall off on its own. Referrals: Rafael Pandya MD [Staff Provider] -
--- NOTE | 2018-04-28 08:28 | OP ---
PROCEDURE DATE: 04/20/2018 PREOPERATIVE DIAGNOSES: 1. Acute cholecystitis and cholelithiasis. 2. Hepatosteatosis. POSTOPERATIVE DIAGNOSES: 1. Acute cholecystitis and cholelithiasis. 2. Hepatosteatosis. PROCEDURES: 1. Laparoscopic cholecystectomy. 2. Liver biopsy. 3. Bilateral sono-guided transversus abdominis plane block anesthesia. SURGEON: Rafael Pandya MD TYPE OF ANESTHESIA: General endotracheal. IV FLUID INTAKE: 1.2 liters of Ringer's lactate. ESTIMATED BLOOD LOSS: 20 mL. DRAINS: One #15 Jr drain. HARDWARE: None. COMPLICATIONS: None. DISPOSITION: Stable and extubated to recovery room. CLINICAL INFORMATION: Mr. Reilly is a 58-year-old male who has been experiencing intermittent right upper quadrant epigastric pain radiating to the right flank accompanied by nausea and vomiting for the last 3 days. The patient assumed he had gastroenteritis and did not seek medical advice. On the day of the surgery, he came to the [facility] complaining of progressively worsening pain and nausea. The workup with the CAT scan indicated that the patient had a distended gallbladder with a stone in the neck of the gallbladder as well as pericholecystic fluid. On clinical examination, the patient had tenderness and guarding in the right upper quadrant as well as the epigastrium. Based on these findings and the elevated white blood count, it was concluded the patient had acute cholecystitis and was taken to the OR for laparoscopic cholecystectomy. INTRAOPERATIVE FINDINGS: The gallbladder appeared to be enlarged, inflamed with a thickened gallbladder wall and multiple gallstones, it was part intrahepatic and the patient had moderate hepatosteatosis with a small amount of reactive fluid in the right paracolic gutter and the right subdiaphragmatic area. No other significant pathology was identified. DESCRIPTION OF PROCEDURE: The patient was brought to the operating room and placed on the operating table in the supine position. After induction of general endotracheal anesthesia, Venodyne boots were placed in both the legs and prophylactic antibiotics were given. The entire abdomen was prepped and draped in the usual sterile fashion. Using a mixture of 0.5% Marcaine and 1% lidocaine with epinephrine, the area in the midline over the supraumbilical was infiltrated with local anesthetic and incised with a #15 blade. The incision was brought down to subcutaneous tissue using Bovie electrocautery. Dissection was continued all the way down to the linea alba, which was incised in a sharp fashion and the peritoneal cavity was accessed. A 0 Vicryl stitch was placed on each side of the incised fascia and Kalpana trocar was inserted under direct visualization. The obturator was removed and the port was connected with a CO2 tank, generating pneumoperitoneum up to 15 mmHg. A 10-mm 30-degree laparoscope and video camera were inserted and the abdomen was inspected up and the patient's position was changed from the reverse Trendelenburg to left side down exposing the right upper quadrant. The gallbladder appeared to be partly concealed by the duodenum, transverse colon, and omentum and the area which was visualized, namely the fundus, appeared to be inflamed and distended with a thickened gallbladder wall. The liver appeared to have a moderate amount of hepatosteatosis bilobarly and there was a small amount of ____ reactive fluid, green tinged, in the right paracolic gutter in the right subdiaphragmatic area. The remaining of the abdominal cavity appeared to be without any other abnormal findings. Three 5-mm ports were inserted in the right upper quadrant to the right of the xyphoid process, at the midclavicular and the right anterior axillary line levels along the right subcostal margin. Through the lateral wall port, the endograsper was inserted and the gallbladder was freed from the attachments to the omentum, transverse colon, duodenum in a sharp and blunt fashion with a small amount of oozing from the surrounding tissues, which were very inflamed and edematous. The endograsper was placed in the fundus of the infundibulum which was for the first time exposed and was retracted upwards and outwards, exposing the triangle of Calot's. Visceral peritoneum was incised and the cystic artery and cystic duct were freed from the attachments to the surrounding tissues and the tissues which were surrounding it and were doubly clipped with the titanium clips in a sequential fashion and incised with Endo Alanis. The gallbladder was visualized, which appeared to be very enlarged and inflamed and partially intrahepatic, was detached from the attachments to the liver bed using a 90-degree Endo-Cut attached to Bovie electrocautery. This was achieved with only a small amount of bleeding from the liver bed and a small amount of bile leak from the gallbladder. The specimen was detached completely from the liver bed and was placed in the Endobag and removed from the operating field and sent to pathology for appropriate label and for permanent sections. The abdomen was irrigated with copious amounts of warm normal saline, approximately 3500 mL, and all the irrigation fluid was aspirated completely. The stamp-sized Surgicel pieces were placed in the liver bed because of diffuse oozing, and at the end of this part of the procedure, there was no evidence of backbleeding from the liver bed or bile leak from the Luschka's ducts. The abdomen was again irrigated and there was no evidence of bile leak or bleeding. A #11 blade was used to perform a small incision between the subxiphoid and the midclavicular ports through which a TruCut needle was advanced under direct laparoscopic visualization and a core needle biopsy was obtained from the right lobe of the liver at the segment 5. The specimen was removed from the operating field and sent to pathology for proper label and for permanent section. The puncture site was cauterized with an Endo-Cut attached to the Bovie electrocautery, was increased to 100, and the backbleeding was easily controlled. Again, the abdominal cavity was irrigated and all the fluid was aspirated. The fascial incision in the supraumbilical midline area was closed with interrupted 0 Vicryl stitches and the integrity of the fascial closure was checked by inserting a 5-mm 30-degree laparoscopic video camera. It was also confirmed there was no evidence of bleeding or backbleeding or bowel or omental entrapment. Of note is that the #15 Jr drain was placed through the lateral port and advanced to the carlos hepatis under direct laparoscopic visualization and secured to the skin using a 2-0 soft stitch. The remaining two 5-mm ports were removed under direct laparoscopic visualization and there was no evidence of bleeding from the port sites. The skin incision was closed with 4-0 continuous subcuticular Monocryl stitch and Dermabond was applied. A bilateral sono-guided transversus abdominis plane block anesthesia was performed by using SonoSite probe which scanned the similar line bilaterally at the level of the umbilicus and a 20 gauge needle was advanced under real-time ultrasound guidance and 10 mL Marcaine was injected in the transverse abdominis plane on both sides. This was done without any complications. At the end of the surgery, the counts of instruments, gauze, and needles were correct x2. The patient tolerated the surgery well and was transferred in stable condition to the recovery room. Rafael Pandya MD
== END 2018-04-24 13:32 | disposition home or self-care (01) | DRG 419 ==
LOC: H.ER 19:01 → H.ERHOLD 20:43 → H.MEDSURG1 04-20 02:15
PROVIDERS: ADMIT Specialist; ATTEND Specialist
PROC: 0FT44ZZ Resection of Gallbladder, Percutaneous Endoscopic Approach (ICD-10-PCS; principal; 2018-04-20 16:15)
PROC: 0FB14ZX Excision of Right Lobe Liver, Percutaneous Endoscopic Approach, Diagnostic (ICD-10-PCS; 2018-04-20 16:15)
PROC: 3E0T3BZ Introduction of Anesthetic Agent into Peripheral Nerves and Plexi, Percutaneous Approach (ICD-10-PCS; 2018-04-20 16:15)
DX: K80.00 Calculus of gallbladder with acute cholecystitis without obstruction (principal); K21.9 Gastro-esophageal reflux disease without esophagitis; Z91.013 Allergy to seafood; F17.290 Nicotine dependence, other tobacco product, uncomplicated; K76.0 Fatty (change of) liver, not elsewhere classified; K59.00 Constipation, unspecified